=== PATIENT | male | born 1980 | race Caucasian/White ===

== ENCOUNTER 2018-05-24 20:54 | Emergency (ER) | payer MEDICAID ==
[~2018-05-24] VITALS: Ht 182.9 cm; Wt 79.5 kg
[2018-05-24 21:38] VITALS: BP 144/89
[2018-05-24] MEDS ORDERED: CLINDAMYCIN PHOS 150 MG/ML 4 ML VIAL IM ONE (22:30)
== END 2018-05-24 22:47 | disposition home or self-care (01) ==
LOC: EMS 20:58
DX: K02.9 Dental caries, unspecified (principal); F17.210 Nicotine dependence, cigarettes, uncomplicated
CPT/HCPCS: 96372; 99283; S0077